=== PATIENT | male | born 1970 | race Caucasian/White ===

== ENCOUNTER 2019-02-26 08:25 | Outpatient (CLI) | payer BC ==
--- NOTE | 2019-02-26 08:45 | RAD ---
XR Abdomen 1 View/KUB 2 view abdomen series CLINICAL INDICATION: Pain FINDINGS: Lung basesare not visualized. Upper abdomen is excluded from view. There is a small calcific density lying inferior right renal sha kervin. Mildretained fecal material is seen within colon. No evidence of bowel obstruction. No acute osseous pathology. IMPRESSION: No acute process. Small calcific density overlying the inferior right renal shadow.
== END 2019-02-26 08:26 | disposition home or self-care (01) ==
LOC: RAD-FRANK 08:25
PROVIDERS: ATTEND Nurse Practitioner Family
DX: R19.4 Change in bowel habit (principal)
CPT/HCPCS: 74018

== ENCOUNTER 2020-09-14 12:59 | Outpatient (CLI) | payer BC ==
--- NOTE | 2020-09-14 13:27 | CT ---
CT HEAD WITHOUT CONTRAST: INDICATION: Hand trimmers. FINDINGS: The ventricles have normal size and position. No evidence of intracranial mass, hemorrhage, edema, o r infarct. Sinuses and mastoids appear clear. IMPRESSION: Unremarkable head CT. POS: [facility]
== END 2020-09-14 13:00 | disposition home or self-care (01) ==
LOC: BICCT 12:59
PROVIDERS: ATTEND Nurse Practitioner Family
DX: G25.0 Essential tremor (principal)
CPT/HCPCS: 70450

== ENCOUNTER 2021-12-06 15:16 | Outpatient (CLI) | payer BC | END 2021-12-06 15:17 | disposition home or self-care (01) | LOC: RAD-FRANK 15:16 | PROVIDERS: ATTEND Nurse Practitioner Family | DX: M54.6 Pain in thoracic spine (principal) | CPT/HCPCS: 71046 ==